=== PATIENT | male | born 1995 | race Caucasian/White ===

== ENCOUNTER 2017-03-04 07:24 | Emergency (ER) | payer SELFPAY ==
--- NOTE | 2017-03-04 07:26 | UC ---
Eye Complaint HPI - HPI Summary HPI Summary: 21 YEAR OLD MALE PRESENTS WITH COMPLAINS OF RED EYES WITH PURULENT DISCHARGE. - History of Current Complaint Stated Complaint: EYE ISSUE RESP ISSUE Time Seen by Provider: 03/04/17 07:26 Hx Obtained From: Patient Onset/Duration: Sudden Onset Timing: Constant Severity Initially: Moderate Severity Currently: Moderate Location of Injury: Conjunctiva, Eye Lid (lower) Character: Sharp - Allergies/Home Medications Allergies/Adverse Reactions: Allergies Allergy/AdvReac Type Severity Reaction Status Date / Time No Known Allergies Allergy Verified 03/04/17 07:40 Review of Systems Constitutional: Negative Skin: Negative Eyes: Drainage, Eye Redness ENT: Negative Respiratory: Negative Cardiovascular: Negative Gastrointestinal: Negative Genitourinary: Negative Motor: Negative Neurovascular: Negative Musculoskeletal: Negative Neurological: Negative Psychological: Negative All Other Systems Reviewed And Are Negative: Yes Physical Exam Triage Information Reviewed: Yes Vital Signs Reviewed: Yes Eyes: Positive: Conjunctiva Inflamed, Discharge ENT Exam: Normal Dental Exam: Normal Neck exam: Normal Neck: Positive: 1 Respiratory Exam: Normal Cardiovascular Exam: Normal Abdominal Exam: Normal Musculoskeletal Exam: Normal Neurological Exam: Normal Psychological Exam: Normal Skin Exam: Normal Eye Complaint Course/Dx - Differential Dx/Diagnosis Provider Diagnoses: CONJUNCTIVITIS Discharge - Discharge Plan Condition: Stable Disposition: HOME Prescriptions: Polymyx/Trimethoprim OPTH* [Polytrim OPHTH*] 1 drop BOTH EYES Q6H #1 btl Patient Education Materials: Conjunctivitis (ED)
[2017-03-04 07:43] VITALS: BP 134/88
== END 2017-03-04 08:00 | disposition home or self-care (01) ==
LOC: UCEAST 07:24
DX: H10.9 Unspecified conjunctivitis (principal)
CPT/HCPCS: 99202; G0463

== ENCOUNTER 2018-05-12 12:22 | Emergency (ER) | payer SELFPAY ==
[2018-05-12 12:35] VITALS: BP 124/80
--- NOTE | 2018-05-12 12:49 | UC ---
Back Pain HPI - HPI Summary HPI Summary: 23-year-old male comes in with a chief complaint of low back pain. Pain started yesterday. He had done some lifting but he had no specific traumatic event. Pain is worse with twisting turning bending. Yesterday the pain did go down into his right buttock and right leg but today it is not radiating. No weakness or numbness no difficulty controlling urine or bowels. No abdominal pain no fevers no urinary symptoms. - History of Current Complaint Chief Complaint: UCBackPain Stated Complaint: BACK PAIN Time Seen by Provider: 05/12/18 12:38 Pain Intensity: 9 - Allergies/Home Medications Allergies/Adverse Reactions: Allergies Allergy/AdvReac Type Severity Reaction Status Date / Time No Known Allergies Allergy Verified 05/12/18 12:35 PMH/Surg Hx/FS Hx/Imm Hx Previously Healthy: Yes - Surgical History Surgical History: Yes Surgery Procedure, Year, and Place: Right Ring Finger Tendon repair- 2010 - Family History Known Family History: Positive: Non-Contributory - Social History Alcohol Use: Daily Alcohol Amount: 1 drink after work. Substance Use Type: Marijuana Smoking Status (MU): Heavy Every Day Tobacco Smoker Amount Used/How Often: 1ppd - Immunization History Most Recent Influenza Vaccination: Not UTD Review of Systems All Other Systems Reviewed And Are Negative: Yes Constitutional: Positive: Negative Skin: Positive: Negative Eyes: Positive: Negative ENT: Positive: Negative Respiratory: Positive: Negative Cardiovascular: Positive: Negative Gastrointestinal: Positive: Negative Genitourinary: Positive: Negative Motor: Positive: Decreased ROM - SEE HPI Neurovascular: Positive: Negative Musculoskeletal: Positive: Other: - SEE HPI Neurological: Positive: Negative Psychological: Positive: Negative Is Patient Immunocompromised?: No Physical Exam Triage Information Reviewed: Yes Appearance: Well-Appearing, Well-Nourished, Pain Distress - MILD WITH MOVEMENT OF THE LOW BACK Vital Signs: Initial Vital Signs Temp 97.8 F 05/12/18 12:30 Pulse 87 05/12/18 12:30 Resp 20 05/12/18 12:30 BP 124/80 05/12/18 12:30 Pulse Ox 98 05/12/18 12:30 Vital Signs Reviewed: Yes Eye Exam: Normal Eyes: Positive: Conjunctiva Clear Neck exam: Normal Neck: Positive: Supple Respiratory: Positive: No respiratory distress Musculoskeletal: Positive: Other: - Patient is tender to palpation along the lower lumbar spine. Patient prefers to stay upright is any bending makes the pain worse. Neurological Exam: Normal Neurological: Positive: Alert, Muscle Tone Normal Psychological Exam: Normal Psychological: Positive: Age Appropriate Behavior Skin Exam: Normal Back Pain Course/Dx - Course Course Of Treatment: Patient will continue the [id number] naproxen. Also have a prescription for Flexeril. We discussed stretches for the back. No neurologic deficits by history or examination today. I let the patient know that if he does get any weakness numbness or difficulty controlling urine or bowels that he needs to get rechecked right away. - Differential Dx/Diagnosis Provider Diagnosis: Low back pain Discharge - Sign-Out/Discharge Documenting (check all that apply): Patient Departure All imaging exams completed and their final reports reviewed: No Studies - Discharge Plan Condition: Stable Disposition: HOME Prescriptions: Cyclobenzaprine TAB* [Flexeril 10 MG TAB*] 10 mg PO TID PRN #15 tab MDD 3 PRN Reason: Pain Patient Education Materials: Acute Low Back Pain (ED), Lower Back Exercises (ED ) Referrals: [facility] [place] [facility]ERR[facility] [Outside] Additional Instructions: FOLLOW UP WITH YOUR DOCTOR IF NOT COMPLETELY IMPROVED. GET RECHECKED FOR ANY WORSENING OF YOUR CONDITION; WEAKNESS, NUMBNESS, DIFFICULTY CONTROLLING BOWEL OR BLADDER OR QUESTIONS OR CONCERNS. - Billing Disposition and Condition Condition: STABLE Disposition: Home
== END 2018-05-12 12:52 | disposition home or self-care (01) ==
LOC: UCEAST 12:22
DX: M54.5 Low back pain (principal); F17.200 Nicotine dependence, unspecified, uncomplicated
CPT/HCPCS: 99212; G0463

== ENCOUNTER 2018-06-01 17:35 | Emergency (ER) | payer SELFPAY ==
--- NOTE | 2018-06-01 17:45 | UC ---
UC Dental HPI - HPI Summary HPI Summary: dental pain front right tooth worsening today -very painful to touch no relief with ibuprofen - History of Current Complaint Chief Complaint: UCDentalProblem Stated Complaint: DENTAL Time Seen by Provider: 06/01/18 17:39 Hx Obtained From: Patient Onset/Duration: Sudden Onset, Still Present, Worse Since - today Severity: Moderate Aggravating Factor(s): Heat, Cold, Chewing Alleviating Factor(s): Nothing Related History: Previous Dental Care on Same Tooth - Allergies/Home Medications Allergies/Adverse Reactions: Allergies Allergy/AdvReac Type Severity Reaction Status Date / Time No Known Allergies Allergy Verified 06/01/18 17:57 Home Medications: Home Medications Ibuprofen TAB* [Motrin TAB* 800 MG] 400 mg PO BID 06/01/18 [History Confirmed ] PMH/Surg Hx/FS Hx/Imm Hx Previously Healthy: Yes - Surgical History Surgical History: Yes Surgery Procedure, Year, and Place: Right Ring Finger Tendon repair- 2010 - Family History Known Family History: Positive: Non-Contributory - Social History Occupation: Employed Full-time Lives: With Family Alcohol Use: Daily Alcohol Amount: 1 drink after work. Substance Use Type: Marijuana Smoking Status (MU): Heavy Every Day Tobacco Smoker Amount Used/How Often: 1ppd Have You Smoked in the Last Year: Yes - Immunization History Most Recent Influenza Vaccination: Not UTD Review of Systems All Other Systems Reviewed And Are Negative: Yes Constitutional: Positive: Negative Skin: Positive: Negative Eyes: Positive: Negative ENT: Positive: Dental Pain Respiratory: Positive: Negative Cardiovascular: Positive: Negative Gastrointestinal: Positive: Negative Genitourinary: Positive: Negative Motor: Positive: Negative Neurovascular: Positive: Negative Musculoskeletal: Positive: Negative Neurological: Positive: Negative Psychological: Positive: Negative Is Patient Immunocompromised?: No Physical Exam Triage Information Reviewed: Yes Appearance: Well-Appearing, No Pain Distress, Well-Nourished Vital Signs Reviewed: Yes Eye Exam: Normal Eyes: Positive: Conjunctiva Clear ENT Exam: Normal ENT: Positive: Normal ENT inspection, Hearing grossly normal, Pharynx normal, Dental tenderness, Uvula midline. Negative: Nasal congestion, Trismus, Hoarse voice, Sinus tenderness Dental Exam: Other Dental: Positive: Percussion Tenderness @ - right front tooth, Abscess @ Neck exam: Normal Neck: Positive: Supple, Nontender, No Lymphadenopathy Respiratory Exam: Normal Respiratory: Positive: No respiratory distress, No accessory muscle use Cardiovascular Exam: Normal Cardiovascular: Positive: Pulses Normal, Brisk Capillary Refill Musculoskeletal Exam: Normal Musculoskeletal: Positive: Strength Intact, ROM Intact, No Edema Neurological Exam: Normal Neurological: Positive: Alert, Muscle Tone Normal Psychological Exam: Normal Skin Exam: Normal Dental Complaint Course/Dx - Course Course Of Treatment: hydrocodone tonight for pain augmentin, continue ibuprofen follow with dentist this week - Differential Dx/Diagnosis Provider Diagnosis: Abscess, dental, Nicotine dependence Discharge - Sign-Out/Discharge Documenting (check all that apply): Patient Departure All imaging exams completed and their final reports reviewed: No Studies - Discharge Plan Condition: Stable Disposition: HOME Prescriptions: Amoxicillin/Clavulanate TAB* [Augmentin TAB 875*] 875 mg PO BID #19 tab Patient Education Materials: Dental Abscess (ED) [place]errals: [facility] [place] [Outside] - As Soon As Possible - Billing Disposition and Condition Condition: STABLE Disposition: Home
[2018-06-01 17:56] VITALS: BP 128/70
[2018-06-01] MEDS ORDERED: HYDROcodone/ACETAMIN 5-325 MG* 1 TAB PO ONE (18:05)
[2018-06-01] MEDS ORDERED: Amoxicillin/Clavulanate TAB* 875 MG PO ONE (18:05)
== END 2018-06-01 18:19 | disposition home or self-care (01) ==
LOC: UCEAST 17:35
DX: K04.7 Periapical abscess without sinus (principal); F17.210 Nicotine dependence, cigarettes, uncomplicated
CPT/HCPCS: 99212; A9270-GY; G0463

== ENCOUNTER 2018-11-02 09:20 | Emergency (ER) | payer SELFPAY ==
[2018-11-02 09:35] VITALS: BP 122/77
[2018-11-02] MEDS ORDERED: Ondansetron INJ* 2 MG/ML VIAL IV ONE (09:42)
[2018-11-02] MEDS ORDERED: NS 0.9% 1000 ML** 1,000 ML IV ONE (09:42)
--- NOTE | 2018-11-02 09:47 | UC ---
UC General HPI - HPI Summary HPI Summary: 23-year-old otherwise healthy male presents with 5-7 days of diarrhea now with abdominal cramping and one episode of vomiting today. He denies any fever, shakes chills or sore throat. 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 There is no family history for Crohn's or colitis. He is not feeling weak or dizzy but is having many watery/dark stools per day. He is arty had 5 or 6 this morning. - History of Current Complaint Chief Complaint: UCGI Stated Complaint: VOMITTING/DIRRHEA Time Seen by Provider: 11/02/18 09:31 Hx Obtained From: Patient Pain Intensity: 7 - Allergy/Home Medications Allergies/Adverse Reactions: Allergies Allergy/AdvReac Type Severity Reaction Status Date / Time No Known Allergies Allergy Verified 11/02/18 09:35 PMH/Surg Hx/FS Hx/Imm Hx Previously Healthy: Yes - Surgical History Surgical History: Yes Surgery Procedure, Year, and Place: Right Ring Finger Tendon repair- 2010 - Family History Known Family History: Positive: Non-Contributory - Social History Occupation: Employed Full-time Alcohol Use: Rare Alcohol Amount: 1 drink after work. Substance Use Type: Marijuana, Other - denies heroin or pills Substance Use Comment - Amount & Last Used: daily Smoking Status (MU): Heavy Every Day Tobacco Smoker Amount Used/How Often: 1ppd Have You Smoked in the Last Year: Yes - Immunization History Most Recent Influenza Vaccination: Not UTD Review of Systems All Other Systems Reviewed And Are Negative: Yes Constitutional: Negative: Fever Skin: Positive: Negative Respiratory: Positive: Negative Cardiovascular: Positive: Negative Gastrointestinal: Positive: Abdominal Pain, Vomiting, Diarrhea, Nausea Genitourinary: Positive: Negative Motor: Positive: Negative Physical Exam Triage Information Reviewed: Yes Appearance: Well-Appearing, No Pain Distress, Well-Nourished Vital Signs: Initial Vital Signs Temp 98.2 F 11/02/18 09:31 Pulse 70 11/02/18 09:31 Resp 18 11/02/18 09:31 BP 122/77 11/02/18 09:31 Pulse Ox 99 11/02/18 09:31 Vital Signs Reviewed: Yes Eyes: Positive: Conjunctiva Clear ENT: Positive: Normal ENT inspection, Other - MMM Neck: Positive: Supple Respiratory: Positive: Lungs clear Cardiovascular: Positive: RRR Abdomen Description: Positive: Soft, Other: - mild diffuse tenderness. Negative : [place] Tenderness Bowel Sounds: Positive: Hyperactive Musculoskeletal Exam: Normal Psychological Exam: Normal Skin Exam: Normal Re-Evaluation - Re-Evaluation First Eval Re-Evaluation Time: 10:39 Change: Improved - stomach not cramping any longer Course/Dx - Course Course Of Treatment: Patient with diarrheal illness now with some cramping and vomiting. Abdomen soft and cramping resolved after IV fluids. No right lower quadrant tenderness. No history of Crohn's or colitis. Stool sample obtained for C. difficile and culture. Treat symptomatically until resulted. - Differential Dx - Multi-Symptom Differential Diagnoses: Other - crohns, c diff, UC, IBD, lactose intol, withdrawal - Diagnoses Provider Diagnosis: Acute infective gastroenteritis Discharge - Sign-Out/Discharge Documenting (check all that apply): Patient Departure All imaging exams completed and their final reports reviewed: No Studies - Discharge Plan Condition: Improved Disposition: HOME Prescriptions: Hyoscyamine Sulfate [Levsin-Sl] 0.125 mg SL Q4H PRN #30 tab.subl PRN Reason: cramping Ondansetron ODT TAB* [Zofran 4 MG Odt TAB*] 4 mg PO Q8H PRN #12 tab.odt PRN Reason: Nausea Patient Education Materials: Gastroenteritis (ED) [facility]errals: [facility] [Outside] [facility] [place] [facility] [Outside] Additional Instructions: Stay well-hydrated. Drink enough water such that you urinate clear. [place] diet as tolerated. Gatorade G2 may help. You may take Imodium for diarrhea. Stool testing will take several days to result. We will call you with any positive results. Return if worse, weak, passing out, high fever, or other concerns. - Billing Disposition and Condition Condition: IMPROVED Disposition: Home
--- NOTE | 2018-11-04 09:21 | ED ---
Progress - Progress Note Progress Note: Please call the patient to find out how he is feeling and if his symptoms are completely gone. We do not have enough stool to run [place]. If he has fever, chills, abdominal pain, bloody diarrhea, diarrhea he needs to come and give another sample, or follow up with his primary care doc [place]. Re-Evaluation - Re-Evaluation First Eval Re-Evaluation Time: 10:39 Change: Improved - stomach not cramping any longer Course/Dx - Diagnoses Provider Diagnoses: Acute infective gastroenteritis Discharge - Sign-Out/Discharge Documenting (check all that apply): Patient Departure All imaging exams completed and their final reports reviewed: No Studies - Discharge Plan Condition: Improved Disposition: HOME Prescriptions: Hyoscyamine Sulfate [Levsin-Sl] 0.125 mg SL Q4H PRN #30 tab.subl PRN Reason: cramping Ondansetron ODT TAB* [Zofran 4 MG Odt TAB*] 4 mg PO Q8H PRN #12 tab.odt PRN Reason: Nausea Patient Education Materials: Gastroenteritis (ED) Referrals: [facility] [Outside] [facility] [place] [facility] [Outside] Additional Instructions: Stay well-hydrated. Drink enough water such that you urinate clear. [place] diet as tolerated. Gatorade G2 may help. You may take Imodium for diarrhea. Stool testing will take several days to result. We will call you with any positive results. Return if worse, weak, passing out, high fever, or other concerns. - Billing Disposition and Condition Condition: IMPROVED Disposition: Home
== END 2018-11-02 11:00 | disposition home or self-care (01) ==
LOC: UCEAST 09:20
DX: A09 Infectious gastroenteritis and colitis, unspecified (principal); F17.210 Nicotine dependence, cigarettes, uncomplicated
CPT/HCPCS: 87045; 87046; 87493; 96361; 96374; 99212; G0463; J2405